=== PATIENT | female | born 1985 | race Caucasian/White ===

== ENCOUNTER 2016-09-01 07:29 | Inpatient (IN) | payer MEDICAID ==
[~2016-09-01] VITALS: Ht 170.2 cm; Wt 79.4 kg
[2016-09-01] VITALS (13 sets, daily range): BP systolic 119–137; RESP 15–22; TEMP 97.4–98.2; Ht 170.2 cm; Wt 79.4 kg
[2016-09-01] MEDS ORDERED: LIDOCAINE 1% BUFFERED 1 ML SYR INTRADERM PRN ×2 (08:05→08:45)
[2016-09-01] MEDS ORDERED: LACT RINGERS 1,000 ML IV SCH ×3 (08:05→10:00)
[2016-09-01] MEDS ORDERED: CEFAZOLIN (LD/OB) 100 ML IV ONE (08:05)
[2016-09-01] MEDS ORDERED: METOCLOPRAMIDE 10 MG/2 ML VIAL IV PUSH ONE ×2 (08:05→08:45)
[2016-09-01] MEDS ORDERED: FAMOTIDINE 20 MG INJ IV ONE ×2 (08:05→08:45)
[2016-09-01] MEDS ORDERED: ONDANSETRON 4 MG VIAL IV ONE (08:45)
[2016-09-01] MEDS ORDERED: SCOPOLAMINE PATCH TRANSDERM ONE (08:45)
[2016-09-01] MEDS ORDERED: MEPERIDINE 25 MG/ML IV PRN (09:45)
[2016-09-01] MEDS ORDERED: BUTORPHANOL 1 MG/ML VIAL IV PRN (09:45)
[2016-09-01] MEDS ORDERED: NALOXONE 0.4 MG/ML AMP IV PRN (09:45)
[2016-09-01] MEDS ORDERED: ONDANSETRON 4 MG VIAL IV PRN ×3 (09:45→10:00)
[2016-09-01] MEDS ORDERED: MORPHINE 2 MG/ML SYR IV PRN ×2 (09:45)
[2016-09-01] MEDS ORDERED: MORPHINE 4 MG/ML SYR IV PRN ×2 (09:45)
[2016-09-01] MEDS ORDERED: SALINE FLUSH 10 ML FLUSH PRN (09:45)
[2016-09-01] MEDS ORDERED: DIPHENHYDRAMINE 50 MG/ML VIAL IV PRN (09:45)
[2016-09-01] MEDS ORDERED: OXYCODONE 5 MG TAB PO PRN (09:45)
[2016-09-01] MEDS ORDERED: DILAUDID 1 MG/ML AMP IV PRN (09:45)
[2016-09-01] MEDS ORDERED: PROMETHAZINE 25 MG/ML VIAL IV PRN (09:45)
[2016-09-01] MEDS ORDERED: TDaP 0.5 ML VIAL IM.VACC ONE (10:00)
[2016-09-01] MEDS ORDERED: BISACODYL 10 MG SUPP RECTAL PRN (10:00)
[2016-09-01] MEDS ORDERED: MAG HYDROX 30 ML UDC PO PRN (10:00)
[2016-09-01] MEDS ORDERED: OXYTOCIN 15 UNITS/250 ML NS 250 ML IV SCH (10:00)
[2016-09-01] MEDS ORDERED: MEASLES,MUMPS,RUBELLA VAC SUBQ.VACC ONE (10:00)
[2016-09-01] MEDS ORDERED: MIDAZOLAM 2 MG/2 ML INJ IV ONE (10:58)
[2016-09-01] MEDS ORDERED: MORPHINE PF 0.5 MG/ML 10 ML IV ONE (10:58)
[2016-09-01] MEDS ORDERED: OXYTOCIN 10 UNITS/ML VIAL IV ONE (10:58)
[2016-09-01] MEDS ORDERED: FENTANYL 100 MCG/2 ML AMP IV ONE (10:58)
[2016-09-01] MEDS: KETOROLAC 30 MG/ML VIAL IV SCH ×3 (11:13→23:35)
[2016-09-01] MEDS: CEFAZOLIN 2,000 MG in SODIUM CHLORIDE 0.9% 100 ML IV SCH ×2 (15:41→23:35)
[2016-09-01] MEDS: SALINE FLUSH 10 ML FLUSH SCH (20:00)
[2016-09-02 02:27] VITALS: BP_SYST 132; RESP 16; TEMP 98.4
[2016-09-02 05:14] VITALS: BP_SYST 118; RESP 20; TEMP 97.3
[2016-09-02] MEDS: SODIUM CHLORIDE 0.9% FLUSH BAG 500 ML IV SCH (06:00)
[2016-09-02] MEDS: KETOROLAC 30 MG/ML VIAL IV SCH (06:06)
[2016-09-02] MEDS: SALINE FLUSH 10 ML FLUSH SCH ×2 (08:00→20:00)
[2016-09-02] MEDS: DOCUSATE SOD 100 MG CAP PO SCH (08:29)
[2016-09-02 09:08] VITALS: BP_SYST 124; RESP 14; TEMP 98.3
[2016-09-02] MEDS ORDERED: OXYCODONE/APAP 5/325 TAB PO PRN (10:00)
[2016-09-02] MEDS: Ibuprofen 600 MG TAB PO SCH ×3 (11:37→23:43)
[2016-09-02 18:20] VITALS: BP_SYST 123; RESP 16; TEMP 98.5
[2016-09-03 05:16] VITALS: BP_SYST 118; RESP 16; TEMP 98
[2016-09-03] MEDS: Ibuprofen 600 MG TAB PO SCH ×2 (05:37→11:46)
[2016-09-03] MEDS: SODIUM CHLORIDE 0.9% FLUSH BAG 500 ML IV SCH (06:00)
[2016-09-03 09:31] VITALS: BP_SYST 122; RESP 18; TEMP 98.6
[2016-09-03] MEDS: DOCUSATE SOD 100 MG CAP PO SCH (11:45)
[2016-09-03 12:30] VITALS: BP_SYST 122; RESP 16; TEMP 98.4
[2016-09-04] MEDS ORDERED: REMOVE SCOPALAMINE PATCH XX ONE (08:45)
== END 2016-09-03 16:37 | disposition home or self-care (01) | DRG 766 ==
LOC: LD 07:29 → OB 14:23
PROVIDERS: ADMIT Obstetrics & Gynecology; ATTEND Obstetrics & Gynecology
PROC: 10D00Z1 Extraction of Products of Conception, Low, Open Approach (ICD-10-PCS; principal; 2016-09-01)
CPT/HCPCS: 82803; 85025